=== PATIENT | male | born 1965 | race Caucasian/White ===

== ENCOUNTER → 2016-11-30 | Outpatient (CLI) | payer OTHER ==
--- NOTE | 2016-11-30 11:15 | ECHOF ---
Referral Reason:R55 syncope MEASUREMENTS -------- HEIGHT: 180.3 cm WEIGHT: 88.5 kg BP: 135/75 RVIDd: 2.9 cm (< 3.3) IVSd: 1.1 cm (0.6 - 1.1) LVIDd: 4.9 cm (3.9 - 5.3) LVPWd: 1.1 cm (0.6 - 1.1) IVSs: 1.5 cm LVIDs: 3.5 cm LVPWs: 1.7 cm LA Diam: 3.5 cm (2.7 - 3.8) LAESV Index (A-L): 26.66 ml/m Ao Diam: 3.0 cm (2.0 - 3.7) AV Cusp: 2.5 cm (1.5 - 2.6) LA Diam: 3.6 cm (2.7 - 3.8) MV EXCURSION: 17.701 mm (> 18.000) MV EF SLOPE: 119 mm/s (70 - 150) EPSS: 0.4 cm MV E Justin: 0.70 m/s MV DecT: 217 ms MV A Jutsin: 0.45 m/s MV E/A Ratio: 1.56 RAP: 5.00 mmHg RVSP: 21.50 mmHg FINDINGS -------- Resting bradycardia (HR<60bpm). This was a technically good study. There is borderline concentric left ventricular hypertrophy. Overall left ventricular systolic function is normal with, an EF between 55 - 60 %. The right ventricle is normal in size. The left atrial size is normal. The right atrium is normal in size. The aortic valve is trileaflet and appears structurally normal. The mitral valve leaflets are mildly thickened. Mild mitral annular calcification present. There is trace mitral regurgitation. Trace tricuspid regurgitation present. Right ventricular systolic pressure is normal at < 35 mmHg. Trace/mild (physiologic) pulmonic regurgitation. The aortic root size is normal. Normal inferior vena cava with normal inspiratory collapse consistent with estimated right atrial pressure of 5 mmHg. There is no pericardial effusion. CONCLUSIONS -------- 1. Resting bradycardia (HR<60bpm). 2. Mild mitral annular calcification present. 3. There is trace mitral regurgitation. 4. Trace tricuspid regurgitation present. 5. Right ventricular systolic pressure is normal at < 35 mmHg. 6. Trace/mild (physiologic) pulmonic regurgitation. 7. The aortic root size is normal. 8. There is no pericardial effusion. 9. This was a technically good study. 10. There is borderline concentric left ventricular hypertrophy. 11. Overall left ventricular systolic function is normal with, an EF between 55 - 60 %. 12. The right ventricle is normal in size. 13. The left atrial size is normal. 14. The right atrium is normal in size. 15. The aortic valve is trileaflet and appears structurally normal. 16. The mitral valve leaflets are mildly thickened. [employer]ULTANT: Tiago Mg RDCS
--- NOTE | 2016-11-30 13:35 | US ---
EXAMINATION TYPE: US carotid duplex BILAT DATE OF EXAM: 11/30/2016 10:01 AM COMPARISON: NONE CLINICAL HISTORY: R55 syncope. EXAM MEASUREMENTS: RIGHT: Peak Systolic Velocity (PSV) cm/sec ----- Right CCA: 108.1 ----- Right ICA: 97.7 ----- Right ECA: 127.4 ICA/CCA ratio: 0.9 RIGHT: End Diastole cm/sec ----- Right CCA: 20.8 ----- Right ICA: 26.3 ----- Right ECA: 12.8 LEFT: Peak Systolic Velocity (PSV) cm/sec ----- Left CCA: 119.8 ----- Left ICA: 100.4 ----- Left ECA: 121.1 ICA/CCA ratio: 0.8 LEFT: End Diastole cm/sec ----- Left CCA: 24.1 ----- Left ICA: 22.8 ----- Left ECA: 15.0 VERTEBRALS (direction of flow): Right Vertebral: Antegrade Left Vertebral: Antegrade TECHNOLOGIST IMPRESSION: No significant stenosis seen IMPRESSION: 1. I do not see evidence of a hemodynamically significant stenosis in either carotid system. 2. Mildly elevated flow velocities, right ECA. Criteria for Assigning % of Stenosis / Diameter reduction (Estimation based on the indirect measurements of the internal carotid artery velocities (ICA PSV). 1. Normal (no stenosis)=ICA PSV < 125 cm/s: ratio < 2.0: ICA EDV<40 cm/s. 2. Less than 50% stenosis=ICA PSV < 125 cm/s: ratio < 2.0: ICA EDV<40 cm/s. 3. 50 to 69% stenosis=ICA PSV of 125 to 230 cm/s: ration 2.0 ? 4.0: ICA EDV 40-100 cm/s. 4. Greater than 70% stenosis to near occlusion= ICA PSV > 230 cm/s: ratio > 4.0: ICA EDV > 100 cm/s. 5. Near occlusion= ICA PSV velocities may be low or undetectable: variable ratio and ICA EDV. 6. Total occlusion=unable to detect flow.
== END | disposition home or self-care (01) ==
LOC: RADUSMAIN 09:33
PROVIDERS: ATTEND Family Medicine
DX: R00.1 Bradycardia, unspecified (principal); I08.3 Combined rheumatic disorders of mitral, aortic and tricuspid valves; I70.0 Atherosclerosis of aorta; I51.7 Cardiomegaly; R55 Syncope and collapse
CPT/HCPCS: 93225; 93226; 93306; 93880

== ENCOUNTER → 2022-01-29 | Outpatient (CLI) | payer BC ==
--- NOTE | 2022-01-29 09:32 | CT ---
EXAMINATION TYPE: CT soft tissue neck w con DATE OF EXAM: 01/29/2022 HISTORY: Dysphagia. Palpable abnormality and right sided pain improved with swallowing COMPARISON: Same-day esophagram study CT DLP: 640 mGycm. Automated Exposure Control for Dose Reduction was Utilized. TECHNIQUE: CT scan of the neck is performed with IV Contrast, patient injected with 100 mL of Isovue M300, axial images are obtained, coronal and sagittal reformatted images are reviewed. FINDINGS: Airway: No gross abnormality seen. Parotid/submandibular glands: No gross abnormality seen. Carotid/Vascular Structures: Dominant left vertebral artery incidentally noted. Vertebral arteries ar e patent to basilar junction. Osseous Structures: Slight grade 1 retrolisthesis C5 on C6 with mild to moderate spurring and disc sp emilee narrowing Other: Metallic BB placed at level of palpable abnormality superior thyroid level axial image 48. No suspicious solid or cystic mass or fluid collection is seen at this level. No suspicious greater than 1.0 cm neck adenopathy identified. Mild to moderate mucosal thickening in the maxillary sinuses bilaterally left greater than right. Mil d to moderate opacification throughout the ethmoid sinuses bilaterally. Mild thickening involving the bilateral sphenoid sinuses. IMPRESSION: No suspicious mass or adenopathy with particular attention to area of clinical concern. Incidental paranasal sinus disease as detailed above.
--- NOTE | 2022-01-29 09:35 | FL ---
EXAMINATION TYPE: FL barium swallow DATE OF EXAM: 01/29/2022 CLINICAL HISTORY: Right-sided neck pain for one year improved with swallowing per patient. TECHNIQUE: A double contrast esophagram is performed utilizing air and barium. A total of 17 second s of fluoroscopic time was utilized during procedure and 118 images obtained COMPARISON: Same day CT neck study. FINDINGS: The esophagus shows normal motility and emptying into the stomach. No diverticulum. No evid ence of hiatal hernia or stricture noted. No significant gastroesophageal reflux was seen during real time performance of this study. Metallic BB marking the level of palpable abnormality identified on images saved to right of midline near cervicothoracic junction just above the clavicles IMPRESSION: Normal esophagram.
== END | disposition home or self-care (01) ==
LOC: RADCTMAIN 08:25
PROVIDERS: ATTEND Otolaryngology
DX: R13.10 Dysphagia, unspecified (principal)
CPT/HCPCS: 74220; 70491; Q9967